=== PATIENT | female | born 1985 | race Caucasian/White ===

== ENCOUNTER 2021-04-27 10:43 | Outpatient (CLI) | payer BC ==
[2021-04-27 12:43] LABS: #Basophils 0.1 10x3/uL (0.0-0.2); #Eosinphils 0.1 10x3/uL (0.0-0.5); #Monocytes 0.4 10x3/uL (0.0-1.1); #Neutrophils 5.4 10x3/uL (1.5-8.4); %Basophils 0.7 % (0.0-2.0); %Eosinophils 1.2 % (0.0-6.0); %Lymphocytes 21.9 % (18.0-47.0); %Monocytes 4.8 % (0.0-10.0); %Neutrophils 71.3 % (40.0-75.0); Hemoglobin 14.4 g/dL (12.0-15.5); Mean Corpuscular HGB CONC 33.5 g/dL (32.0-36.0); Mean Corpuscular Hemoglobin 29.1 pg (27.0-33.0); Mean Platelet Volume 9.8 fl (7.4-10.4); Platelet Count 290 10x3/uL (150-450); RBC Distribution Width 12.4 % (11.5-14.5); Red Blood Cell (RBC) Count 4.94 10x6/uL (3.90-5.03); White Blood Cell (WBC) Count 7.5 10x3/uL (3.5-10.5)
[2021-04-27 13:46] LABS: Anion Gap 15 mmol/L (10-20); BUN (Urea Nitrogen) 19 mg/dL (7.0-18.7); Calc. Creatinine Clearance 0 mL/min (70-130); Calcium 9.4 mg/dL (7.8-10.44); Carbon Dioxide 23 mmol/L (22-29); Chloride 105 mmol/L (98-107); Glucose 85 mg/dL (70-105); Potassium 4.1 mmol/L (3.5-5.1); Sodium 139 mmol/L (136-145)
[2021-04-27 17:22] LABS: BHCG - Serum Negative (NEGATIVE); Pregs Control Background? CLEAR/WHITE (CLR/WHITE); Pregs Control Bar Appear? YES (CONTROL BAR)
[2021-04-27 19:31] LABS: SARS-CoV-2 PCR by NAA Not Detected (NotDetected)
== END 2021-04-27 10:44 | disposition home or self-care (01) ==
LOC: LABBT 10:43
PROVIDERS: ATTEND Surgery
DX: Z01.812 Encounter for preprocedural laboratory examination (principal); K42.9 Umbilical hernia without obstruction or gangrene; Z20.822 Contact with and (suspected) exposure to COVID-19
CPT/HCPCS: 80048; 84703; 85025; U0003; U0005

== ENCOUNTER 2021-04-30 06:05 | Day surgery (SDC) | payer BC ==
[2021-04-29 10:53] VITALS: BMI 27.8
[2021-04-30] MEDS ORDERED: Ketorolac Tromethamine 30 MG/ML VIAL ONE (06:24)
[2021-04-30] MEDS ORDERED: Acetaminophen 500 MG TAB ONE (06:24)
[2021-04-30] MEDS ORDERED: Fentanyl 100 MCG/2 ML VIAL ONE (07:36)
[2021-04-30] MEDS ORDERED: Bupivacaine 0.25% HCL 30 ML VIAL ONE (07:43)
[2021-04-30] MEDS ORDERED: Lidocaine 1% w/Epinephrine 1:100K 20 ML VIAL ONE (07:43)
[2021-04-30] MEDS ORDERED: Ondansetron PF 4 MG/2 ML Vial ONE (08:14)
[2021-04-30] MEDS ORDERED: Dexamethasone 20 MG/5 ML VIAL ONE (08:14)
[2021-04-30] MEDS ORDERED: PROPOFOL 200 MG/20 ML VIAL ONE (08:14)
[2021-04-30] MEDS ORDERED: Lidocaine 1% PF 5 ML VIAL ONE (08:14)
[2021-04-30] MEDS ORDERED: ePHEDrine Sulfate 50 MG/10 ML VIAL ONE (08:14)
== END 2021-04-30 10:20 | disposition home or self-care (01) ==
LOC: SDC 06:05
PROVIDERS: ATTEND Surgery
PROC: 0WQF0ZZ Repair Abdominal Wall, Open Approach (ICD-10-PCS; principal; 2021-04-30)
DX: K43.9 Ventral hernia without obstruction or gangrene (principal); E03.9 Hypothyroidism, unspecified; Z79.899 Other long term (current) drug therapy
CPT/HCPCS: J0690; J1100; J1885; J2405; J2704; J3010; S0020

== ENCOUNTER 2024-04-02 13:40 | Outpatient (CLI) | payer BC | END 2024-04-02 13:41 | disposition home or self-care (01) | LOC: BICMAMMO 13:40 | PROVIDERS: ATTEND Obstetrics & Gynecology | DX: Z12.31 Encounter for screening mammogram for malignant neoplasm of breast (principal); Z80.3 Family history of malignant neoplasm of breast | CPT/HCPCS: 77063; 77067 ==

== ENCOUNTER 2024-05-15 12:44 | Outpatient (CLI) | payer BC | END 2024-05-15 12:45 | disposition home or self-care (01) | LOC: BICULT 12:44 | PROVIDERS: ATTEND Internal Medicine | DX: E03.9 Hypothyroidism, unspecified (principal); E07.9 Disorder of thyroid, unspecified | CPT/HCPCS: 76536 ==